=== PATIENT | female | born 1990 | race Caucasian/White ===

== ENCOUNTER 2016-12-30 15:56 | Emergency (ER) | payer BC, OTHER ==
[~2016-12-30] VITALS: Ht 162.6 cm; Wt 54.0 kg
[2016-12-30 16:01] VITALS: BP 105/78; PULSE 110; RESP 20; TEMP 99.3; O2SAT 97
[2016-12-30] MEDS ORDERED: SODIUM CHLOR 0.9% 1000 ML INJ 1,000 ML IV SCH (16:19)
--- NOTE | 2016-12-30 16:22 | PD ---
HPI Chief Complaint: Complaint Time Seen by Provider: 16:15 Travel History International Travel<30 days: No Contact w/Intl Traveler<30days: No Traveled to known affect area: No History of Present Illness HPI 26-year-old female here for evaluation of dysuria, right lower quadrant abdominal pain, and right flank pain. Symptoms of a lung onto last 3 days and have been progressively getting worse. She has had subjective fevers, chills, and nausea. No vomiting. Pain is moderate, constant, worse with movement and palpation. She has noted some hematuria. No vaginal discharge or bleeding. PFSH Past Medical History ?: Not LMP: LAST MONTH Social History Alcohol Use: Yes Tobacco Use: Yes Allergies-Medications (Allergen,Severity, Reaction): Coded Allergies: Penicillin (Verified Allergy, Unknown, 12/30/16) Reported Meds & Prescriptions Reported Meds & Active Scripts Active Tramadol (Tramadol HCl) 50 Mg Tab 50 Mg PO Q6H PRN Bactrim DS (Sulfamethoxazole-Trimethoprim) 800-160 Mg Tab 1 Tab PO BID 14 Days Review of Systems Except as stated in HPI: all other systems reviewed are Neg Physical Exam Narrative GENERAL: Well-developed, well-nourished, comfortable, no acute distress. SKIN: Warm and dry. No rash. HEAD: Atraumatic. Normocephalic. EYES: Pupils equal and round. No scleral icterus. No injection or drainage. ENT: Mucous membranes pink and moist. NECK: Trachea midline. No JVD. No nuchal rigidity. CARDIOVASCULAR: Tachycardic, rate 110, regular. RESPIRATORY: No accessory muscle use. Clear to auscultation. Breath sounds equal bilaterally. GASTROINTESTINAL: Abdomen soft, nondistended. Moderate right lower quadrant tenderness without rebound or guarding. Rest of abdomen is soft and nontender. Normal bowel sounds. MUSCULOSKELETAL: No obvious deformities. No clubbing. No cyanosis. No edema. Mild CVA tenderness on the right. No left CVA tenderness. NEUROLOGICAL: Awake and alert. No obvious cranial nerve deficits. Motor grossly within normal limits. Normal speech. PSYCHIATRIC: Appropriate mood and affect; insight and judgment normal. Data Data Last Documented VS Vital Signs Date Time Temp Pulse Resp B/P Pulse Ox O2 Delivery O2 Flow Rate FiO2 12/30/16 19:00 90 16 115/68 100 Room Air 12/30/16 16:01 99.3 Orders Urinalysis - C+S If Indicated (12/30/16 16:09) Ed Urine Pregnancytest Poc (12/30/16 16:12) Complete Blood Count With Diff (12/30/16 16:19) Comprehensive Metabolic Panel (12/30/16 16:19) Lipase (12/30/16 16:19) Prothrombin Time / Inr (Pt) (12/30/16 16:19) Act Partial Throm Time (Ptt) (12/30/16 16:19) Ct Abd/Pel W Iv Contrast(Rout) (12/30/16 16:19) Iv Access Insert/Monitor (12/30/16 16:19) Ecg Monitoring (12/30/16 16:19) Oximetry (12/30/16 16:19) Morphine Inj (Morphine Inj) (12/30/16 16:30) Ondansetron Inj (Zofran Inj) (12/30/16 16:30) Sodium Chlor 0.9% 1000 Ml Inj (Ns 1000 M (12/30/16 16:19) Sodium Chloride 0.9% Flush (Ns Flush) (12/30/16 16:30) Oral Contrast - Adult (12/30/16 16:24) Diatrizoate Liq ( Gastroview Liq) (12/30/16 16:25) Urine Culture (12/30/16 16:15) Ceftriaxone Inj (Rocephin Inj) (12/30/16 16:45) Iohexol 350 Inj (Omnipaque 350 Inj) (12/30/16 18:34) Sulfamet-Trimeth Ds 800-160 Mg (Bactrim (12/30/16 19:15) Labs Laboratory Tests Test 12/30/16 12/30/16 16:15 16:34 Urine Collection Type CLEAN CATCH Urine Color YELLOW Urine Turbidity CLEAR Urine pH 6.0 Urine Specific [place] 1.015 Urine Protein 100 mg/dL Urine Glucose (UA) NEG mg/dL Urine Ketones 15 mg/dL Urine Occult Blood MOD Urine Nitrite NEG Urine Bilirubin NEG Urine Leukocyte Esterase SMALL Urine RBC 10-14 /hpf Urine WBC 20-24 /hpf Urine Squamous Epithelial 0-5 /hpf Cells Urine Transitional Epithelial 0-5 /hpf Cells Urine Bacteria FEW /hpf Microscopic Urinalysis Comment CULTURE INDICATED Urine Collection Time 16:15 White Blood Count 10.4 TH/MM3 Red Blood Count 4.77 MIL/MM3 Hemoglobin 15.2 GM/DL Hematocrit 44.2 % Mean Corpuscular Volume 92.8 FL Mean Corpuscular Hemoglobin 32.0 PG Mean Corpuscular Hemoglobin 34.5 % Concent Red Cell Distribution Width 11.2 % Platelet Count 200 TH/MM3 Mean Platelet Volume 8.0 FL Neutrophils (%) (Auto) 81.1 % Lymphocytes (%) (Auto) 11.7 % Monocytes (%) (Auto) 6.7 % Eosinophils (%) (Auto) 0.2 % Basophils (%) (Auto) 0.3 % Neutrophils # (Auto) 8.5 TH/MM3 Lymphocytes # (Auto) 1.2 TH/MM3 Monocytes # (Auto) 0.7 TH/MM3 Eosinophils # (Auto) 0.0 TH/MM3 Basophils # (Auto) 0.0 TH/MM3 CBC Comment DIFF FINAL Differential Comment Prothrombin Time 10.6 SEC Prothromb Time International 1.0 RATIO Ratio Activated Partial 29.6 SEC Thromboplast Time Sodium Level 138 MEQ/L Potassium Level 3.6 MEQ/L Chloride Level 102 MEQ/L Carbon Dioxide Level 27.4 MEQ/L Anion Gap 9 MEQ/L Blood Urea Nitrogen 8 MG/DL Creatinine 0.82 MG/DL Estimat Glomerular Filtration 86 ML/MIN Rate Random Glucose 109 MG/DL Calcium Level 8.5 MG/DL Total Bilirubin 0.8 MG/DL Aspartate Amino Transf 10 U/L (AST/SGOT) Alanine Aminotransferase 13 U/L (ALT/SGPT) Alkaline Phosphatase 80 U/L Total Protein 7.5 GM/DL Albumin 3.5 GM/DL Lipase 95 U/L [facility] Medical Decision Making Medical Screen Exam Complete: Yes Emergency Medical Condition: Yes Differential Diagnosis Appendicitis, cystitis, UTI, pyelonephritis, nephrolithiasis, ureterolithiasis, colitis, , ectopic , ovarian cyst, ovarian torsion less likely , PID Narrative Course Initial vital signs show heart rate 110, blood pressure 105/78, pulse ox 97% on room air, oral temp of 99.3F. CBC shows WBC 10.4, hemoglobin 15.2, hematocrit 44.2, platelets 200, neutrophils 81.1%. CMP is unremarkable. Lipase is 95. UA is suggestive of UTI. The patient was given a dose of Rocephin. CT abdomen pelvis: CONCLUSION: 1. Patchy areas of decreased perfusion in the right kidney. Differential diagnosis includes focal areas of nephritis. No evidence for obstructive uropathy. Remainder of exam unremarkable. Follicular cysts present in both ovaries measuring up to 2 cm on the right. The patient was made aware of all findings. She is resting comfortably. Her abdominal exam is benign. She is stable for discharge home with oral antibiotics for pyelonephritis. ENT follow-up this week. INSTRUMENT MAINTENANCE SUPERVISOR follow-up as well. She was informed on when to return to the emergency department which verbalizes understanding and agreement with plan. Diagnosis Primary Impression: Pyelonephritis Additional Impression: Ovarian cyst Qualified Code: N83.201 - Cysts of both ovaries Referrals: Bowl Turner 3 days Primary Care Physician 3 days Additional Instructions: Follow-up with a primary care physician this week. Follow-up with a process equipment operator this week. Take antibiotic as prescribed. Return to the emergency department for worsening symptoms or any other concerns. Scripts Tramadol 50 Mg Tab50 Mg PO Q6H PRN (PAIN) #15 TAB Ref 0 Prov:Lacho Payan MD 12/30/16 Sulfamethoxazole-Trimethoprim (Bactrim DS)800-160 Mg Tab1 Tab PO BID 14 Days Ref 0 Prov:Lacho Payan MD 12/30/16 Disposition: 01 DISCHARGE HOME Condition: Stable Lacho Payan MD Dec 30, 2016 16:22
[2016-12-30] MEDS ORDERED: DIATRIZOATE MEGLUM/DIATRIZOATE SOD 9 ML CUP ONE (16:25)
[2016-12-30 16:28] LABS: GLUCOSE,URINE NEG (NEG); KETONE, URINE 15 mg/dL (NEG); NITRITE,URINE NEG (NEG)
[2016-12-30 16:30] LABS: BLOOD, URINE MOD (NEG)
[2016-12-30] MEDS ORDERED: MORPHINE SULFATE 4 MG/ML INJ IV PUSH ONE (16:30)
[2016-12-30] MEDS ORDERED: SODIUM CHLORIDE 0.9% FLUSH 5 ML FLUSH IVF PRN (16:30)
[2016-12-30] MEDS ORDERED: ONDANSETRON HCL 4 MG/2 ML VIAL IVP ONE (16:30)
[2016-12-30 16:32] LABS: METHOD OF COLLECTION CLEAN CATCH; URINE COLOR YELLOW (YELLW/STRAW)
[2016-12-30 16:33] LABS: BACTERIA, URINE FEW /hpf; COMMENT (UR) CULTURE INDICATED; CULTURE IF INDICATED CULTURE INDICATED; SQUAMOUS EPITHELIAL CELL URINE 0-5 /hpf (0-5); TRANSITIONAL EPI CELLS, URINE 0-5 /hpf
[2016-12-30 16:34] VITALS: O2SAT 98
[2016-12-30 16:39] LABS: AUTOMATED NEUTROPHIL # 8.5 TH/MM3 (1.8-7.7); BASOPHIL % 0.3 % (0.0-2.0); EOSINOPHIL % 0.2 % (0.0-4.0); HEMATOCRIT 44.2 % (35.0-46.0); LYMPH % 11.7 % (9.0-44.0); LYMPHOCYTE # 1.2 TH/MM3 (1.0-4.8); MEAN CELL VOLUME 92.8 FL (80.0-100.0); MEAN CORPUSCULAR HGB CONC 34.5 % (32.0-36.0); MONO % 6.7 % (0.0-8.0); NEUT % 81.1 % (16.0-70.0); PLATELET COUNT 200 TH/MM3 (150-450); RED BLOOD COUNT 4.77 MIL/MM3 (4.00-5.30); RED CELL DISTRIBUTION WIDTH 11.2 % (11.6-17.2); WHITE BLOOD COUNT 10.4 TH/MM3 (4.0-11.0)
[2016-12-30 16:43] LABS: HEMO FLAGS DIFF FINAL
[2016-12-30] MEDS ORDERED: cefTRIAXone INJ 1,000 MG in SODIUM CHLORIDE 0.9% INJ 100 ML IV ONE (16:45)
[2016-12-30 16:51] LABS: CHLORIDE 102 MEQ/L (98-107); POTASSIUM 3.6 MEQ/L (3.5-5.1); SODIUM (NA) 138 MEQ/L (136-145)
[2016-12-30 16:54] LABS: ANION GAP 9 MEQ/L (5-15); BICARBONATE 27.4 MEQ/L (21.0-32.0)
[2016-12-30 16:55] LABS: BLOOD UREA NITROGEN 8 MG/DL (7-18)
[2016-12-30 16:57] LABS: ALT (GPT) 13 U/L (10-53); AST (GOT) 10 U/L (15-37); GLOMERULAR FILTRATION RATE 86 ML/MIN (>89)
[2016-12-30 16:59] LABS: TOTAL BILIRUBIN ADULT 0.8 MG/DL (0.2-1.0)
[2016-12-30 17:00] LABS: ALKALINE PHOSPHATASE 80 U/L (45-117)
[2016-12-30 17:42] LABS: APTT (PATIENT) 29.6 SEC (24.3-30.1); PROTHROMBIN TIME - PATIENT 10.6 SEC (9.8-11.6)
[2016-12-30] MEDS ORDERED: IOHEXOL 350 MG/ML 10 ML VIAL (for RAD DIAG) IV ONE (18:34)
[2016-12-30 19:00] VITALS: BP 115/68; PULSE 90; RESP 16; O2SAT 100
--- NOTE | 2016-12-30 19:00 | RADHPO ---
EXAM DATE/TIME: 12/30/2016 18:19 [place] COMPARISON: No previous studies available for comparison. INDICATIONS : Right lower abdomen pain for two day. IV CONTRAST: 69 cc Omnipaque 350 (iohexol) IV ORAL CONTRAST: Prescribed oral contrast ingested. RADIATION DOSE: 5.31 CTDIvol (mGy) MEDICAL HISTORY : None SURGICAL HISTORY : None. ENCOUNTER: Initial ACUITY: 1 day PAIN SCALE: 3/10 LOCATION: Right lower quadrant TECHNIQUE: Volumetric scanning of the abdomen and pelvis was performed. Using automated exposure control and ad justment of the mA and/or kV according to patient size, radiation dose was kept as low as reasonably achievable to obtain optimal diagnostic quality images. FINDINGS: Lung bases are clear. There are patchy perfusion defects in the right kidney. Focal areas of nephritis could give this appe arance. There is no hydronephrosis or evidence for obstructive uropathy. No acute findings in the liver, spleen, adrenals or pancreas. No calcified gallstones or biliary duct al dilatation. Mild constipation. There are follicular cysts in the adnexal regions bilaterally. No f ree fluid or free air. CONCLUSION: 1. Patchy areas of decreased perfusion in the right kidney. Differential diagnosis includes focal are as of nephritis. No evidence for obstructive uropathy. Remainder of exam unremarkable. Follicular cys ts present in both ovaries measuring up to 2 cm on the right. Ashok Cole MD on December 30, 2016 at 18:53 Board Certified Radiologist. This report was verified electronically.
[2016-12-30] MEDS ORDERED: TRAM50TA PO (19:08)
[2016-12-30] MEDS ORDERED: BACT800T5 PO (19:08)
[2016-12-30] MEDS ORDERED: SULFAMETHOXAZOLE-TRIMETHOPRIM DS 800-160 MG TAB PO ONE (19:15)
== END 2016-12-30 19:42 | disposition home or self-care (01) ==
LOC: PHED 15:56
DX: N12 Tubulo-interstitial nephritis, not specified as acute or chronic (principal); N83.202 Unspecified ovarian cyst, left side; N83.201 Unspecified ovarian cyst, right side; Z72.0 Tobacco use; B96.89 Other specified bacterial agents as the cause of diseases classified elsewhere
CPT/HCPCS: 74177; 80053; 81001; 83690; 84703; 85025; 85610; 85730; 87086; 96361; 96365; 96375; 99284; J0696; J2270; J2405; J7030; Q9963; Q9967

== ENCOUNTER 2017-01-03 15:10 | Emergency (ER) | payer BC, OTHER ==
[~2017-01-03] VITALS: Ht 162.6 cm; Wt 54.0 kg
[~2017-01-03 15:10] MED LIST: BACT800T5 PO; TRAM50TA PO
[2017-01-03 15:12] VITALS: BP 109/68; PULSE 91; RESP 16; TEMP 98.6; O2SAT 98
[2017-01-03] MEDS ORDERED: METR-1 PO (15:59)
[2017-01-03] MEDS ORDERED: PRED-503 PO (15:59)
[2017-01-03] MEDS ORDERED: predniSONE 20 MG TAB PO ONE (16:00)
--- NOTE | 2017-01-03 16:00 | PD ---
HPI Chief Complaint: Allergic/Adverse Reaction Time Seen by Provider: 15:48 Travel History International Travel<30 days: No Contact w/Intl Traveler<30days: No Traveled to known affect area: No History of Present Illness HPI The patient is a 26-year-old female who presents emergency department for an allergic reaction. The patient was seen in emergency department 5 days ago for a bladder infection, was diagnosed with pyelonephritis and placed on Bactrim for 14 days. The patient states the second day after she took Bactrim, she developed itching of the abdomen. The third day she had progressively worse itching on the abdomen, and on the fourth day she broke out in hives with itching. The patient took Benadryl prior to arrival which improved her symptoms significantly. The patient denied any difficulty swallowing, tongue swelling, wheezing, or shortness of breath. Patient does state her bladder symptoms have improved. PFSH Past Medical History Diminished Hearing: No ?: Not LMP: NOW Social History Alcohol Use: Yes Tobacco Use: Yes Substance Use: No Allergies-Medications (Allergen,Severity, Reaction): Coded Allergies: Penicillin (Verified Allergy, Unknown, 01/03/17) Reported Meds & Prescriptions Reported Meds & Active Scripts Active Tramadol (Tramadol HCl) 50 Mg Tab 50 Mg PO Q6H PRN Bactrim DS (Sulfamethoxazole-Trimethoprim) 800-160 Mg Tab 1 Tab PO BID 14 Days Review of Systems Except as stated in HPI: all other systems reviewed are Neg General / Constitutional: No: Fever HENT: No: Other (no angioedema) Cardiovascular: No: Chest Pain or Discomfort Respiratory: No: Shortness of Breath, Wheezing Skin: Positive Rash, Positive Itching Physical Exam Narrative GENERAL: Awake, alert, pleasant 26-year-old female who appears her stated age and is in no acute respiratory distress. SKIN: Warm and dry. No obvious urticaria. HEAD: Atraumatic. Normocephalic. EYES: Pupils equal and round. No scleral icterus. No injection or drainage. ENT: No nasal bleeding or discharge. Mucous membranes pink and moist. No uvula edema noted. No lip swelling noted. No tongue swelling noted. NECK: Trachea midline. No JVD. CARDIOVASCULAR: Regular rate and rhythm. No murmur appreciated. RESPIRATORY: No accessory muscle use. Clear to auscultation. Breath sounds equal bilaterally. No wheezing noted. MUSCULOSKELETAL: No obvious deformities. No clubbing. No cyanosis. No edema. NEUROLOGICAL: Awake and alert. No obvious cranial nerve deficits. Motor grossly within normal limits. Normal speech. PSYCHIATRIC: Appropriate mood and affect; insight and judgment normal. Data Data Last Documented VS Vital Signs Date Time Temp Pulse Resp B/P Pulse Ox O2 Delivery O2 Flow Rate FiO2 01/03/17 15:12 98.6 91 16 109/68 98 Orders Prednisone (Deltasone) (01/03/17 16:00) [facility] Medical Decision Making Medical Screen Exam Complete: Yes Emergency Medical Condition: Yes Medical Record Reviewed: Yes Differential Diagnosis Differential diagnosis includes allergic reaction, drug eruption, Jason- Bryan syndrome, UTI, pyelonephritis, vaginitis. Narrative Course I reviewed the patient's EMR course, I reviewed her CT which was suspicious for possible nephritis. I reviewed the micro-results, grew out Gardnerella and staph coag negative with no further analysis. Therefore, patient will be placed on Flagyl twice a day for Gardnerella. She is advised to stop Bactrim, was administered prednisone 40 mg orally, and will be placed on prednisone 40 mg orally for the next 4 days. She is also advised to take Benadryl every 6 hours and return if symptoms worsen or progress. She is also advised to list sulfa as an allergy. Diagnosis Primary Impression: Allergic reaction Qualified Code: T78.40XA - Allergic reaction, initial encounter Additional Impression: Gardnerella infection Patient Instructions: General Instructions Additional Instructions: List sulfa as an allergy. Stop Bactrim. Flagyl as directed. Prednisone as directed. Benadryl every 6 hours. Follow-up with your primary physician. Return if symptoms worsen or progress. Med/Other Pt SpecificInfo: Prescription(s) given, Med Stopped (stop Bactrim) Scripts Metronidazole (Flagyl)500 Mg [id number] Mg PO BID 7 Days Ref 0 Prov:Anuj Copeland MD 01/03/17 Prednisone (Deltasone)20 Mg Tab40 Mg PO DAILY 4 Days Ref 0 Prov:Anuj Copeland MD 01/03/17 Disposition: 01 DISCHARGE HOME Condition: Stable Anuj Copeland MD Jan 03, 2017 16:00
== END 2017-01-03 16:11 | disposition home or self-care (01) ==
LOC: PHEFT 15:10
DX: T37.0X5A Adverse effect of sulfonamides, initial encounter (principal); Y92.9 Unspecified place or not applicable; F10.10 Alcohol abuse, uncomplicated; Z72.0 Tobacco use
CPT/HCPCS: 99282; J7512

== ENCOUNTER 2017-08-31 14:10 | Emergency (ER) | payer BC, MEDICAID ==
[~2017-08-31] VITALS: Ht 162.6 cm; Wt 61.8 kg
[~2017-08-31 14:10] MED LIST changes: +METR-1 PO; +PRED-503 PO
[2017-08-31 14:26] VITALS: BP 138/78; PULSE 91; RESP 18; TEMP 98.3; O2SAT 99
[2017-08-31] MEDS ORDERED: LORazepam 1 MG TAB PO ONE (15:15)
--- NOTE | 2017-08-31 15:25 | PD ---
HPI Chief Complaint: Dizziness Time Seen by Provider: 14:33 Travel History International Travel<30 days: No Contact w/Intl Traveler<30days: No Traveled to known affect area: No History of Present Illness HPI 27-year-old presents emergency Department with anxiety symptoms. Symptoms been ongoing for the past couple days. She is a history of frequent anxiety symptoms. She describes palpitations, tingling, and feeling poorly. No other associated symptoms. No aggravating or alleviating factors. History Past Medical History Medical History: Denies Significant Hx LMP: 08/27/17 Past Surgical History Surgical History: No Previous Surgery Social History Alcohol Use: Yes Tobacco Use: Yes Allergies-Medications (Allergen,Severity, Reaction): Coded Allergies: penicillin G (Unverified Allergy, Unknown, 08/31/17) Reported Meds & Prescriptions Reported Meds & Active Scripts Active No Active Prescriptions or Reported Medications Review of Systems Except as stated in HPI: all other systems reviewed are Neg Physical Exam Narrative GENERAL: Well-appearing 27-year-old woman, no acute distress. SKIN: Focused skin assessment warm/dry. HEAD: Atraumatic. Normocephalic. EYES: Pupils equal and round. No scleral icterus. No injection or drainage. ENT: No nasal bleeding or discharge. Mucous membranes pink and moist. NECK: Trachea midline. No JVD. CARDIOVASCULAR: Regular rate and rhythm. No murmur appreciated. RESPIRATORY: No accessory muscle use. Clear to auscultation. Breath sounds equal bilaterally. GASTROINTESTINAL: Abdomen soft, non-tender, nondistended. Hepatic and splenic margins not palpable. MUSCULOSKELETAL: No obvious deformities. No clubbing. No cyanosis. No edema. NEUROLOGICAL: Awake and alert. No obvious cranial nerve deficits. Motor grossly within normal limits. Normal speech. PSYCHIATRIC: Mildly anxious. Data Data Last Documented VS Vital Signs Date Time Temp Pulse Resp B/P (MAP) Pulse Ox O2 Delivery O2 Flow Rate FiO2 08/31/17 15:44 88 18 136/74 (94) 98 08/31/17 14:26 98.3 Orders Orders Lorazepam (Ativan) (08/31/17 15:15) Electrocardiogram (08/31/17 ) Ed Discharge Order (08/31/17 15:25) [facility] Medical Decision Making Medical Screen Exam Complete: Yes Emergency Medical Condition: Yes Interpretation(s) My review of EKG: Normal sinus rhythm at a rate of 75, normal axis, normal intervals, no ischemia. Differential Diagnosis Anxiety, palpitations, arrhythmia, electrolyte abnormality, adverse effect of illicit drugs, other Narrative Course Well-appearing 27-year-old with anxiety symptoms. Looks well. Recommend supportive treatment. Diagnosis Primary Impression: Anxiety Additional Instructions: Drink plenty of fluids stay well-hydrated. Continue to cultivate healthy coping mechanisms for your anxiety. Return to the emergency department for any new or worsening symptoms. Med/Other Pt SpecificInfo: No Change to Meds Scripts No Active Prescriptions or Reported Meds Disposition: 01 DISCHARGE HOME Condition: Stable See Campbell MD Aug 31, 2017 15:25
[2017-08-31 15:44] VITALS: BP 136/74
--- NOTE | 2017-08-31 16:17 | EKG ---
Date Performed: 08/31/2017 Time Performed: 15:17:28 PTAGE: 27 years EKG: Sinus rhythm WITH SINUS ARRHYTHMIA NORMAL ECG NO PREVIOUS TRACING DOCTOR: Yo Griffin Interpretating Date/Time 08/31/2017 16:15:16
== END 2017-08-31 15:45 | disposition home or self-care (01) ==
LOC: PHED 14:10
DX: F41.9 Anxiety disorder, unspecified (principal); Z88.0 Allergy status to penicillin; Z72.0 Tobacco use
CPT/HCPCS: 93005